=== PATIENT | female | born 1975 | race African-American/Black ===

== ENCOUNTER 2017-11-14 14:53 | Emergency (ER) | payer OTHER ==
[2017-11-14 15:01] VITALS: TEMP 99; BMI 24.9
--- NOTE | 2017-11-14 16:29 | PDOC ---
History of Present Illness - History of Present Illness Initial Comments: 11/14/17 16:22 Pt is a 42 year old female with no significant PMH who presents with left head and neck pain for a month. Pt states she first had these symptoms in 2013. Her episodes of headache would occur once a year and last a month. More recently in 2017, she's had 4 seaparate episodes, the most recent of which is not abating. In general, these episodes of headache are associated with photophobia, stress, amnestic "black outs" during which the patient does not remember arguments with her fiance in which she had been "publicly screaming" at him. She also describes finding her self in new locations with no recollection of how she got there. This episode is associated with alternating nausea/vomiting and diarrhea beginning last night. Pt also describes losing her hair in clumps. Admits to tremors. Denies heat/ cold sensitivity. Pt sees Dr. Simona Colbert as outpt. Currently afebrile, stable, and anxious. <Morgan Chávez - Last Filed: 11/14/17 19:13> <Payal Bonilla - Last Filed: 11/14/17 19:49> - General Chief Complaint: Pain Stated Complaint: HEAD PAIN Time Seen by Provider: 11/14/17 15:10 Past History - Past Medical History CVA: No COPD: No - Suicide/Smoking/Psychosocial Hx Smoking History: Never smoked Hx Alcohol Use: Yes (SOCIAL) Drug/Substance Use Hx: No <Morgan Chávez - Last Filed: 11/14/17 19:13> <Payal Bonilla - Last Filed: 11/14/17 19:49> - Past Medical History Allergies/Adverse Reactions: Allergies Allergy/AdvReac Type Severity Reaction Status Date / Time No Known Allergies Allergy Verified 11/14/17 14:58 Home Medications: Ambulatory Orders NK [No Known Home Medication] 11/14/17 Review of Systems - Review of Systems Able to Perform ROS?: Yes Is the patient limited [place] proficient: No Constitutional: Yes: Symptoms Reported. No: Chills, Diaphoresis, Fever HEENTM: Yes: Symptoms Reported. No: Blurred Vision Respiratory: Yes: Symptoms reported, Shortness of Breath. No: Cough, Orthopnea Cardiac (ROS): Yes: Symptoms Reported. No: Chest Pain ABD/GI: Yes: Symptoms Reported, Diarrhea, Nausea, Vomiting. No: Abdominal Distended : Yes: Symptoms Reported. No: Dysuria, Discharge Neurological: Yes: Symptoms reported, Headache, Tremors Psychiatric: Yes: Anxiety, Frequent Crying, Stressors <Morgan Chávez - Last Filed: 11/14/17 19:13> *Physical Exam - Vital Signs Last Vital Signs Temp Pulse Resp BP Pulse Ox 99.0 F 91 H 20 144/84 100 11/14/17 14:55 11/14/17 14:55 11/14/17 14:55 11/14/17 14:55 11/14/17 14:55 - Physical Exam General Appearance: Yes: Nourished, Appropriately Dressed, Apparent Distress ( anxious). No: Disheveled Neck: positive: Normal Thyroid, Supple. negative: Tender Respiratory/Chest: positive: Lungs Clear, Normal Breath Sounds. negative: Respiratory Distress Cardiovascular: positive: Regular Rhythm, Regular Rate Vascular Pulses: Dorsalis-Pedis (R): 2+, Doralis-Pedis (L): 2+ Gastrointestinal/Abdominal: positive: Normal Bowel Sounds, Tender (nontender on distracted exam), Flat, Soft. negative: Organomegaly Neurologic: positive: appliance counselor II-XII NML intact, Fully Oriented, Alert. negative: Normal Mood/Affect (anxious) <Morgan Chávez - Last Filed: 11/14/17 19:13> - Vital Signs Last Vital Signs Temp Pulse Resp BP Pulse Ox 99.0 F 90 14 117/78 98 11/14/17 14:55 11/14/17 19:44 11/14/17 19:44 11/14/17 19:44 11/14/17 19:44 <Payal Bonilla - Last Filed: 11/14/17 19:49> ED Treatment Course - LABORATORY CBC & Chemistry Diagram: 11/14/17 17:16 11/14/17 17:16 <Morgan Chávez - Last Filed: 11/14/17 19:13> - LABORATORY CBC & Chemistry Diagram: 11/14/17 17:16 11/14/17 17:16 - ADDITIONAL ORDERS Additional order review: Laboratory Results 11/14/17 11/14/17 17:16 16:57 Sodium 138 Potassium 3.8 Chloride 104 Carbon Dioxide 26 Anion Gap 9 BUN 8 Creatinine 0.7 Creat Clearance w eGFR > 60 Random Glucose 81 Calcium 8.9 Total Bilirubin 1.3 H AST 22 ALT 24 Alkaline Phosphatase 62 Total Protein 7.2 Albumin 3.8 Lipase 67 L 11/14/17 17:16 RBC 4.47 MCV 93.2 MCHC 34.2 RDW 13.1 MPV 8.1 Neutrophils % 73.8 Lymphocytes % 19.2 Monocytes % 5.5 Eosinophils % 0.3 Basophils % 1.2 - Medications Given in the ED: ED Medications Discontinued Medications Generic Name Dose Route Start Last Admin Trade Name Luba PRN Reason Stop Dose Admin Acetaminophen 1,000 mg 11/14/17 16:42 11/14/17 17:21 Tylenol - PO 11/14/17 16:43 1,000 mg ONCE ONE Administration Diphenhydramine HCl 25 mg 11/14/17 16:43 11/14/17 17:24 Benadryl Injection - IVPB 11/14/17 16:44 25 mg ONCE ONE Administration Metoclopramide HCl 10 mg 11/14/17 16:43 11/14/17 17:24 Reglan - PO 11/14/17 16:44 10 mg ONCE ONE Administration <Payal Bonilla - Last Filed: 11/14/17 19:49> Medical Decision Making - Medical Decision Making 11/14/17 16:32 Pt presents with L head and neck pressure associated with stress, photophobia, and phonophobia consistent with migraine. Pt also complained of alternating nausea/vomiting and diarrhea. Plan -CBC -CMP -Lipase -NS -Tylenol -Reglan -Benadryl -CT head 11/14/17 17:51 Pt currently sleeping comfortably in bed. Lipase negative. CBC unremarkable. 11/14/17 19:13 Pt signed out to night team. <Morgan Chávez - Last Filed: 11/14/17 19:13> *DC/Admit/Observation/Transfer <Morgan Chávez - Last Filed: 11/14/17 19:13> - Discharge Dispostion Admit: No <Payal Bonilla - Last Filed: 11/14/17 19:49> Diagnosis at time of Disposition: Migraine - Discharge Dispostion Disposition: HOME Condition at time of disposition: Improved - Referrals Referrals: Maria Luz Colbert [Primary Care Provider] - Zafar Berrios DO [Staff Physician] - - Patient Instructions Printed Discharge Instructions: Migraine -- Adult - Post Discharge Activity
[2017-11-14] MEDS ORDERED: ACETAMINOPHEN 500 MG TABLET (FP) PO ONE (16:42)
[2017-11-14] MEDS ORDERED: METOCLOPRAMIDE HCL 10 MG TABLET (FP) PO ONE (16:43)
[2017-11-14] MEDS ORDERED: METOCLOPRAMIDE HCL INJECTION 10 MG/2 ML VIAL ONE (17:02)
[2017-11-14] MEDS ORDERED: ACETAMINOPHEN 325 MG TABLET (FP) ONE (17:02)
--- NOTE | 2017-11-14 17:11 | PDOC ---
Attending Attestation - Resident Resident Name: Mohamud Bennett - ED Attending Attestation I have performed the following: I have examined & evaluated the patient, The case was reviewed & discussed with the resident, I agree w/resident's findings & plan, Exceptions are as noted - HPI HPI: 11/14/17 17:06 42-year-old female with history of hysterectomy secondary to endometriosis presents with recurrent left-sided pounding headache since 2013. Patient does have a history of childhood migraines that was typically salute generalized headaches with photophobia. The patient has had intermittently over the last several years of having upon and left sided headache with photophobia and phonophobia that resolved after several days. Patient in no follow-up with her doctor regarding these symptoms. Stated that she case and feels nauseous and sometimes vomits with the symptoms. Denies neck stiffness, fevers or chills. Came to the ED because she wanted it checked out and the last episode was 2-3 days. Does not take any medications. - Physicial Exam PE: 11/14/17 17:09 GENERAL: Awake, alert, and fully oriented, in no acute distress. HEAD: No signs of trauma EYES: PERRLA, EOMI, sclera anicteric, conjunctiva clear ENT: Auricles normal inspection, hearing grossly normal, nares patent, oropharynx clear without exudates. NECK: Normal ROM, supple, no lymphadenopathy, JVD, or masses LUNGS: Breath sounds equal, clear to auscultation bilaterally. No wheezes, and no crackles HEART: Regular rate and rhythm, normal S1 and S2, no murmurs, rubs or gallops ABDOMEN: Soft, nontender, normoactive bowel sounds. No guarding, no rebound. No masses EXTREMITIES: Normal range of motion, no edema. No clubbing or cyanosis. No cords, erythema, or tenderness NEUROLOGICAL: Cranial nerves II through XII intact. Normal speech, normal gait. No dysmetria. 5/5 strength upper and lower extremities. No pronator drift. SKIN: Warm, Dry, normal turgor, no rashes or lesions noted. - Medical Decision Making 11/14/17 17:09 Vital Signs Temp Pulse Resp BP Pulse Ox 99.0 F 91 H 20 144/84 100 11/14/17 14:55 11/14/17 14:55 11/14/17 14:55 11/14/17 14:55 11/14/17 14:55 I suspect the patient likely has a migraine any causing her symptoms. Patient never had head imaging before. We'll obtain a head CT. We'll treat her headaches as if she has migraines. Patient does have some epigastric discomfort which is unclear what the etiology is. May be secondary to nausea but we'll investigate with laboratory workup. 11/14/17 18:18 Pt's headache significantly better (resolved) with migraine medications. Head CT pending. If negative, patient can be discharged home with neuro outpatient follow up. <Corey Hernández - Last Filed: 11/14/17 18:18> - Medical Decision Making 11/14/17 19:48 Patient Name: LUTHER TOVAR THIS IS A PRELIMINARY REPORT FROM [facility] DATE OF SERVICE: 2017-11-14 18:46:29 IMAGES: 133 EXAM: CT HEAD without contrast HISTORY: Severe migraine headache. COMPARISON: None. FINDINGS: Negative unenhanced head CT examination. There is no CT evidence of acute cortical territorial infarction, bleed, mass lesion, mass effect, hydrocephalus or abnormal extraaxial collection. No acute sinusitis or mastoiditis is identified. No acute skull fracture or calvarial lesion is noted. Pt will go home and follow with Dr. Berrios <Payal Bonilla - Last Filed: 11/14/17 19:49>
[2017-11-14 17:23] LABS: BASO % 1.2 % (0-2.0); EOS % 0.3 % (0-4.5); HEMATOCRIT 41.7 % (32.4-45.2); HEMOGLOBIN 14.3 GM/dL (10.7-15.3); LYMPH % 19.2 % (8-40); MCH 31.9 pg (25.7-33.7); MCHC 34.2 g/dl (32.0-36.0); MEAN CELL VOLUME 93.2 fl (80-96); MEAN PLT VOLUME 8.1 fl (7.5-11.1); MONO % 5.5 % (3.8-10.2); NEUT % 73.8 % (42.8-82.8); PLATELET COUNT 341 K/MM3 (134-434); RBC 4.47 M/mm3 (3.60-5.2); RDW 13.1 % (11.6-15.6); WHITE BLOOD COUNT 9.8 K/mm3 (4.0-10.0)
[2017-11-14 18:05] LABS: POTASSIUM 3.8 mmol/L (3.5-5.1); SGOT/AST 22 U/L (15-37); SODIUM 138 mmol/L (136-145)
[2017-11-14 18:22] LABS: ALBUMIN 3.8 g/dl (3.4-5.0); ALK PHOS 62 U/L (45-117); ANION GAP 9 (8-16); BILIRUBIN,TOTAL 1.3 mg/dL (0.2-1.0); BLOOD UREA NITROGEN 8 mg/dL (7-18); CALCIUM 8.9 mg/dL (8.5-10.1); CHLORIDE 104 mmol/L (98-107); CO2 26 mmol/L (21-32); CREATININE 0.7 mg/dL (0.55-1.02); GLUCOSE,RANDOM 81 mg/dL (74-106); SGPT/ALT 24 U/L (12-78); TOT PROT 7.2 g/dl (6.4-8.2)
[2017-11-14] MEDS ORDERED: SODIUM CHLORIDE 1,000 ML IV ONE (19:03)
[2017-11-14 19:45] VITALS: BP 117/78; PULSE 90
--- NOTE | 2017-11-14 20:00 | PDOC ---
*Physical Exam - Vital Signs Last Vital Signs Temp Pulse Resp BP Pulse Ox 99.0 F 90 14 117/78 98 11/14/17 14:55 11/14/17 19:44 11/14/17 19:44 11/14/17 19:44 11/14/17 19:44 Patient's care signed out to me by excellent Dr. Chávez at the beginning of my shift. 42 YOF presents with headache, nonfocal neuro exam, awaiting results of HCT. Can be discharged home if HCT is wnl, recommend Reglan and Naproxen E-Rx. ED Treatment Course - LABORATORY CBC & Chemistry Diagram: 11/14/17 17:16 11/14/17 17:16 - ADDITIONAL ORDERS Additional order review: Laboratory Results 11/14/17 11/14/17 17:16 16:57 Sodium 138 Potassium 3.8 Chloride 104 Carbon Dioxide 26 Anion Gap 9 BUN 8 Creatinine 0.7 Creat Clearance w eGFR > 60 Random Glucose 81 Calcium 8.9 Total Bilirubin 1.3 H AST 22 ALT 24 Alkaline Phosphatase 62 Total Protein 7.2 Albumin 3.8 Lipase 67 L 11/14/17 17:16 RBC 4.47 MCV 93.2 MCHC 34.2 RDW 13.1 MPV 8.1 Neutrophils % 73.8 Lymphocytes % 19.2 Monocytes % 5.5 Eosinophils % 0.3 Basophils % 1.2 - Medications Given in the ED: ED Medications Discontinued Medications Generic Name Dose Route Start Last Admin Trade Name Freq PRN Reason Stop Dose Admin Acetaminophen 1,000 mg 11/14/17 16:42 11/14/17 17:21 Tylenol - PO 11/14/17 16:43 1,000 mg ONCE ONE Administration Diphenhydramine HCl 25 mg 11/14/17 16:43 11/14/17 17:24 Benadryl Injection - IVPB 11/14/17 16:44 25 mg ONCE ONE Administration Metoclopramide HCl 10 mg 11/14/17 16:43 11/14/17 17:24 Reglan - PO 11/14/17 16:44 10 mg ONCE ONE Administration Medical Decision Making - Medical Decision Making HCT without acute intracranial process. She is appropriate for DC home with close OP follow up. Return precautions are discussed. *DC/Admit/Observation/Transfer Diagnosis at time of Disposition: Migraine Qualifiers: Migraine type: unspecified Status migrainosus presence: without status migrainosus Intractability: not intractable Qualified Code(s): G43.909 - Migraine, unspecified, not intractable, without status migrainosus - Discharge Dispostion Disposition: HOME Condition at time of disposition: Improved - Prescriptions Prescriptions: Metoclopramide HCl [Reglan] 10 mg PO QID PRN #15 tablet PRN Reason: Headache Naproxen 500 mg PO BID PRN #14 tablet PRN Reason: Headache - Referrals Referrals: Zafar Berrios DO [Staff Physician] - Maria Luz Colbert [Primary Care Provider] - - Patient Instructions Printed Discharge Instructions: Migraine -- Adult - Post Discharge Activity
== END 2017-11-14 20:04 | disposition home or self-care (01) ==
LOC: JER 14:53
PROC: 3E0337Z Introduction of Electrolytic and Water Balance Substance into Peripheral Vein, Percutaneous Approach (ICD-10-PCS; principal; 2017-11-14)
PROC: 3E033GC Introduction of Other Therapeutic Substance into Peripheral Vein, Percutaneous Approach (ICD-10-PCS; 2017-11-14)
DX: G43.909 Migraine, unspecified, not intractable, without status migrainosus (principal)
CPT/HCPCS: 36415; 70450-TC; 80053; 83690; 85025; 99284-25

== ENCOUNTER 2019-09-19 12:24 | Emergency (ER) | payer OTHER ==
[2019-09-19 12:38] VITALS: BP 111/81; PULSE 95; TEMP 98.2; BMI 25.7
[2019-09-19] MEDS ORDERED: SODIUM CHLORIDE 1,000 ML IV STA (12:39)
--- NOTE | 2019-09-19 12:39 | PDOC ---
Rapid Medical Evaluation Chief Complaint: Syncope/Near Syncope Time Seen by Provider: 09/19/19 12:35 Medical Evaluation: Allergies Allergy/AdvReac Type Severity Reaction Status Date / Time No Known Allergies Allergy Verified 11/14/17 14:58 09/19/19 12:36 CC: pre-syncope with head trauma PE: lac to right eyebrow Orders: cardiac w/u Patient will proceed to ED for further evaluation. Discharge Disposition - Diagnosis Dizziness - Referrals - Patient Instructions - Post Discharge Activity
[2019-09-19] MEDS ORDERED: DIPHTH,PERTUSS(ACELL),TET 0.5 ML DISP.SYRIN IM ONE ×2 (13:01→13:29)
--- NOTE | 2019-09-19 13:33 | PDOC ---
History of Present Illness - General Chief Complaint: Syncope/Near Syncope Stated Complaint: HEAD LAC W/ LOC Time Seen by Provider: 09/19/19 12:35 History Source: Patient Exam Limitations: No Limitations - History of Present Illness Initial Comments: 09/19/19 14:29 44-year-old female presents to ED status post syncopal episode. Patient stated 1 AM went to the bathroom to urinate and while washing her hands she started to develop dizziness. Patient states tried to brace herself but next thing she knows she woke up on the bathroom floor with a laceration to her right eyebrow patient states went back to bed because she initially did not realize the extent of the laceration and this morning when she awoke had noted the lump in laceration. Patient states no visual changes, headache, nausea presently and denies any cardiac disease or medical history. Presenting Symptoms: Syncope Timing/Duration: reports: resolved prior to arrival Severity/Quality: reports: other Chest Pain Radiation: reports: no radiation Activities at Onset: reports: none Prior Chest Pain/Cardiac Workup: reports: No prior chest pain Associated Symptoms: Yes: Dizziness, Syncope Past History - Travel Traveled outside of the country in the last 30 days: No Close contact w/someone who was outside of country & ill: No - Past Medical History Allergies/Adverse Reactions: Allergies Allergy/AdvReac Type Severity Reaction Status Date / Time No Known Allergies Allergy Verified 11/14/17 14:58 Home Medications: Ambulatory Orders Metoclopramide HCl [Reglan] 10 mg PO QID PRN #15 tablet 11/14/17 Naproxen 500 mg PO BID PRN #14 tablet 11/14/17 CVA: No COPD: No - Immunization History Immunization Up to Date: Yes - Psycho Social/Smoking Cessation Hx Smoking History: Never smoked Information on smoking cessation initiated: No Hx Alcohol Use: No Drug/Substance Use Hx: No Patient Lives Alone: No Lives with/in: spouse/SO Review of Systems - Review of Systems Able to Perform ROS?: Yes Constitutional: No: Symptoms Reported HEENTM: No: Symptoms Reported Respiratory: No: Symptoms reported Cardiac (ROS): Yes: Lightheadedness, Syncope ABD/GI: No: Symptoms Reported : No: Symptoms Reported Musculoskeletal: No: Symptoms Reported Integumentary: Yes: Other (rt eye lac) Neurological: No: Symptoms reported Endocrine: No: Symptoms Reported Hematologic/Lymphatic: No: Symptoms Reported *Physical Exam - Vital Signs Last Vital Signs Temp Pulse Resp BP Pulse Ox 98.2 F 95 H 17 111/81 100 09/19/19 12:34 09/19/19 12:34 09/19/19 12:34 09/19/19 12:34 09/19/19 12:34 - Physical Exam General Appearance: Yes: Nourished, Appropriately Dressed. No: Apparent Distress HEENT: positive: EOMI, GIBSON, TMs Normal, Other (Tender over right frontal bone) . negative: Pale Conjunctivae Neck: positive: Supple Respiratory/Chest: positive: Lungs Clear, Normal Breath Sounds. negative: Respiratory Distress, Accessory Muscle Use Cardiovascular: positive: Regular Rhythm, Regular Rate. negative: Murmur Gastrointestinal/Abdominal: positive: Soft. negative: Tenderness Integumentary: positive: Other (rt eyebrow laceration) Neurologic: positive: Normal Mood/Affect, Motor Strength 5/5 (ambulatory) Heart Score/ECG Review - ECG Intrepretation Rhythm: Regular Rhythm (rate 76. Normal sinus rhythm. No ST elevation or depression intervals are regular.) Procedures - Laceration/Wound Repair Right Eye Wound Length: to 2.5 cm Wound Explored: clean Wound's Depth, Shape: superficial, linear Irrigated w/ Saline: Yes Betadine Prep: Yes Wound Repaired With: Steri-strips, Dermabond ED Treatment Course - LABORATORY CBC & Chemistry Diagram: 09/19/19 13:41 09/19/19 13:41 - ADDITIONAL ORDERS Additional order review: 09/19/19 13:41 RBC 4.93 MCV 92.0 MCHC 34.4 RDW 13.1 MPV 8.2 Neutrophils % 74.9 Lymphocytes % 18.5 Monocytes % 4.9 Eosinophils % 1.0 D Basophils % 0.7 - RADIOLOGY Radiology Studies Ordered: Category Date Time Status FACIAL BONES CT W/O CONTRAST [CT] Stat CT Scan 09/19/19 13:[address] WITHOUT CONTRAST [CT] Stat CT Scan 09/19/19 13:02 Completed - Medications Given in the ED: ED Medications Discontinued Medications Generic Name Dose Route Start Last Admin Trade Name Freq PRN Reason Stop Dose Admin Diphtheria/Tetanus/Acell Pertussis 0.5 ml 09/19/19 13:01 09/19/19 13:47 Boostrix - IM 09/19/19 13:02 0.5 ml .ONCE ONE Administration Sodium Chloride 1,000 mls @ 1,000 mls/hr 09/19/19 12:39 09/19/19 13:47 Normal Saline - IV 09/19/19 13:38 1,000 mls/hr ASDIR STA Administration Medical Decision Making - Medical Decision Making 09/19/19 14:31 Chief complaint: Status post syncopal episode while in the bathroom at 1 AM this morning patient sustained a laceration. No complaints presently. Exam: laceration noted to right eyebrow. Vital signs stable no neurofocal deficit tender over frontal bone Plan: EKG, basic labs, urine, head and facial CT laceration repair, 09/19/19 14:33 Laboratory Tests 09/19/19 09/19/19 13:41 13:43 WBC 8.5 Hgb 15.6 H Hct 45.3 H Absolute Neuts (auto) 6.4 Neutrophils % 74.9 Urine Ketones Trace H Ur Leukocyte Esterase Negative Chemistry pending. Patient remains asymptomatic. Patient currently receiving IV fluids. Head and facial CT negative for acute pathology. 09/19/19 15:08 Laboratory Tests 09/19/19 09/19/19 09/19/19 13:41 13:41 13:43 WBC 8.5 Hgb 15.6 H Hct 45.3 H Absolute Neuts (auto) 6.4 Neutrophils % 74.9 Sodium 134 L Potassium 3.7 Chloride 98 Carbon Dioxide 29 Anion Gap 7 L BUN 11.0 Creatinine 0.9 Est GFR (CKD-EPI)AfAm 90.76 Est GFR (CKD-EPI)NonAf 78.31 Random Glucose 85 Calcium 10.0 Magnesium 2.5 H Total Bilirubin 2.1 H AST 29 ALT 28 Alkaline Phosphatase 78 Creatine Kinase 168 Troponin I < 0.02 Urine Ketones Trace H Urine Nitrite Negative Urine Bilirubin Negative Ur Leukocyte Esterase Negative Pt states feeling better. pt discharged home with laceration repair instructions and recommendation to increase fluids Discharge - Discharge Information Problems reviewed: Yes Clinical Impression/Diagnosis: Dizziness, Laceration Condition: Improved Disposition: HOME - Follow up/Referral Referrals: Maria Luz Colbert [Primary Care Provider] - - Patient Discharge Instructions Patient Printed Discharge Instructions: DI for Syncope in Adults (Fainting), DI for Laceration Repair With Dermabond Additional Instructions: Please drink plenty of fluids. Keep laceration dry and allow steri strips to fall off. - Post Discharge Activity
[2019-09-19 14:11] LABS: PH,URINE 5.5 (5.0-8.0); URINE APPEARANCE CLOUDY; URINE BILIRUBIN NEGATIVE (NEGATIVE); URINE COLOR YELLOW; URINE GLUCOSE (UA) NEGATIVE (NEGATIVE); URINE KETONE TRACE (NEGATIVE); URINE LEUK ESTERASE NEGATIVE (NEGATIVE); URINE NITRITE NEGATIVE (NEGATIVE); URINE PROTEIN NEGATIVE (NEGATIVE)
[2019-09-19 14:12] LABS: BASO % 0.7 % (0-2.0); HEMATOCRIT 45.3 % (32.4-45.2); HEMOGLOBIN 15.6 GM/dL (10.7-15.3); LYMPH % 18.5 % (8-40); MCH 31.7 pg (25.7-33.7); MCHC 34.4 g/dl (32.0-36.0); MEAN PLT VOLUME 8.2 fl (7.5-11.1); MONO % 4.9 % (3.8-10.2); NEUT % 74.9 % (42.8-82.8); PLATELET COUNT 407 K/MM3 (134-434); RBC 4.93 M/mm3 (3.60-5.2); RDW 13.1 % (11.6-15.6); WHITE BLOOD COUNT 8.5 K/mm3 (4.0-10.0)
[2019-09-19 14:47] LABS: ALBUMIN 4.6 g/dl (3.4-5.0); ALK PHOS 78 U/L (45-117); ANION GAP 7 MMOL/L (8-16); BILIRUBIN,TOTAL 2.1 mg/dL (0.2-1); CHLORIDE 98 mmol/L (98-107); CO2 29 mmol/L (21-32); CREATININE 0.9 mg/dL (0.55-1.3); GLUCOSE,RANDOM 85 mg/dL (74-106); MAGNESIUM 2.5 mg/dL (1.8-2.4); POTASSIUM 3.7 mmol/L (3.5-5.1); SGOT/AST 29 U/L (15-37); SGPT/ALT 28 U/L (13-61); SODIUM 134 mmol/L (136-145); TOT PROT 8.5 g/dl (6.4-8.2)
--- NOTE | 2019-09-19 15:05 | EKG ---
Test Reason : Blood Pressure : / mmHG Vent. Rate : 076 BPM Atrial Rate : 076 BPM P-R Int : 128 ms QRS Dur : 084 ms QT Int : 406 ms P-R-T Axes : 064 059 053 degrees QTc Int : 456 ms NORMAL SINUS RHYTHM NORMAL ECG NO PREVIOUS ECGS AVAILABLE Confirmed by ASHLEIGH MERCADO MD ([id number]) on 09/19/2019 3:05:23 PM Referred By: Confirmed By:ASHLEIGH MERCADO MD
== END 2019-09-19 15:29 | disposition home or self-care (01) ==
LOC: JER 12:24
PROC: 3E0234Z Introduction of Serum, Toxoid and Vaccine into Muscle, Percutaneous Approach (ICD-10-PCS; principal; 2019-09-19)
PROC: 3E0337Z Introduction of Electrolytic and Water Balance Substance into Peripheral Vein, Percutaneous Approach (ICD-10-PCS; 2019-09-19)
PROC: 0HQ1XZZ Repair Face Skin, External Approach (ICD-10-PCS; 2019-09-19)
DX: S01.111A Laceration without foreign body of right eyelid and periocular area, initial encounter (principal); R55 Syncope and collapse; W18.39XA Other fall on same level, initial encounter; Y93.E8 Activity, other personal hygiene; Y92.031 Bathroom in apartment as the place of occurrence of the external cause; Y99.8 Other external cause status
CPT/HCPCS: 12011-25; 36415; 70450-TC; 70486-TC; 80053; 81003; 82550; 82553; 83735; 84484; 85025; 90471; 90715; 93005; 93010; 96360; 99285-25; J7030